=== PATIENT | male | born 1990 | race Caucasian/White ===

== ENCOUNTER 2020-12-03 21:14 | Emergency (ER) | payer OTHER ==
[~2020-12-03 21:14] MED LIST: AUGMENTIN 875-1 EACH PO; CLEOCIN HCL300 MG PO; IBUPROFEN800 MG PO; KEFLEX CAP 500500 MG PO; NORCO 5-325 TA1 EACH PO; PREDNISONE20 MG PO
[2020-12-03 21:51] LABS: HEMOGLOBIN 16.4 gm/dl (14.0-17.5); RED BLOOD COUNT 5.21 M/UL (4.20-5.50); WHITE BLOOD COUNT 16.1 K/UL (4.5-11.0)
[2020-12-03 22:13] LABS: BUN/CREATININE RATIO 10 (0-10)
[2020-12-04] MEDS ORDERED: CEPHALEXIN500 MG PO (02:25)
== END 2020-12-04 02:50 | disposition home or self-care (01) ==
LOC: ER1 21:14
PROVIDERS: Student in an Organized Health Care Education/Training Program
DX: S22.31XA Fracture of one rib, right side, initial encounter for closed fracture (principal); S49.91XA Unspecified injury of right shoulder and upper arm, initial encounter; V49.40XA Driver injured in collision with unspecified motor vehicles in traffic accident, initial encounter; Y92.410 Unspecified street and highway as the place of occurrence of the external cause
CPT/HCPCS: 70450; 71045; 71260; 72125; 72170; 73030; 73200; 80053; 80307; 81001; 82550; 82553; 83605; 83874; 84484; 85025; 85610; 85730; 86850; 86900; 86901; 90715; 93005; 94760; 99285; G0480; J0690; J3010; Q9967